=== PATIENT | male | born 1970 | race Caucasian/White ===

== ENCOUNTER 2022-04-17 09:07 | Emergency (ER) | payer OTHER ==
[2022-04-17] MEDS ORDERED: Ketorolac Tromethamine 30 MG/ML VIAL ONE (10:05)
[2022-04-17] MEDS ORDERED: Cyclobenzaprine 10 MG TAB ONE (10:06)
== END 2022-04-17 11:22 | disposition home or self-care (01) ==
LOC: CSHERS 09:07
DX: M62.830 Muscle spasm of back (principal); M54.41 Lumbago with sciatica, right side; F17.200 Nicotine dependence, unspecified, uncomplicated; M10.9 Gout, unspecified; E78.5 Hyperlipidemia, unspecified; Z79.899 Other long term (current) drug therapy; W01.0XXA Fall on same level from slipping, tripping and stumbling without subsequent striking against object, initial encounter
CPT/HCPCS: 96372; J1885